=== PATIENT | male | born 1965 | race Caucasian/White ===

== ENCOUNTER 2019-09-13 08:33 | Observation (INO) | payer OTHER, SELFPAY ==
[2019-09-13] VITALS (8 sets, daily range): BP systolic 124–145; BP diastolic 77–100; PULSE 69–86; RESP 10–18; TEMP 37.1–37.4; O2SAT 96–100; BMI 31.7
--- NOTE | 2019-09-13 | ECHO_ITS ---
Patient Info Name: Navdeep Coy Age: 54 years : 1965 Gender: Male Ht: 69 in Wt: 220 lbs BSA: 2.24 m2 HR: 75 bpm BP: 132 / 77 mmHg Technical Quality: Good Exam Date: 09/13/2019 3:26 PM Exam Location: [facility] Pulmonary Exam Room: [facility] Patient Status: Outpatient Admit Date: 09/13/2019 Staff Ordering Physician: Sharon Yoo PA-C Application Support Developer: Marlyn Morales RDCS Attending Provider: Alvarez Reid MD Referring Physician: Naila THURMAN; Exam Type: CA echo doppler w bubble study Study Info Indications - cryptogenic cva Complete two-dimensional, color flow and Doppler transthoracic echocardiogram is performed with agitated saline. Contrast/Agitated Saline Contrast/Ag. Saline: Agitated Saline Amount: 20.00 ml Administered By: Andrés Weiss RN Existing IV Access: Yes IV Access Condition: patent with no signs of infiltration Summary 1. Left ventricular chamber dimension is normal. 2. Ventricular septum is sigmoid shaped. 3. Left ventricular systolic function is normal, estimated at 60-65%. 4. There is mildly increased left ventricular wall thickness. 5. The left ventricular diastolic function is grade II diastolic dysfunction. 6. E/e' 11 is mildly elevated. 7. No pulmonary hypertension, estimated pulmonary arterial systolic pressure is 18 mmHg. Left Ventricle E/e' 11 is mildly elevated. Ventricular septum is sigmoid shaped. Left ventricular chamber dimension is normal. Left ventricular systolic function is normal, estimated at 60-65%. There is mildly increased left ventricular wall thickness. The left ventricular diastolic function is grade II diastolic dysfunction. Right Ventricle Right ventricular chamber dimension is normal. Left Atria Left atrial chamber dimension is normal. Right Atria Right atrial chamber dimension is normal. Atrial Septum Agitated saline injection opacifed the right sided chambers without any shunt to left sided chambers with and without valsalva maneuver. Intact interatrial septum visualized by color flow and agitated saline imaging. Aortic Valve The aortic valve is trileaflet. There is no aortic valve stenosis. There is no aortic valve regurgitation. Pulmonic Valve There is no pulmonic regurgitation. Mitral Valve There is no mitral valve stenosis. There is no mitral valve regurgitation. Tricuspid Valve There is no tricuspid valve regurgitation. No pulmonary hypertension, estimated pulmonary arterial systolic pressure is 18 mmHg. Pericardium/Pleural There is no pericardial effusion. Inferior Vena Cava Normal inferior vena cava with >50% collapse upon inspiration consistent with normal right atrial pressure, 5 mmHg. Aorta The aortic root size at the sinus of Valsalva is normal. Left Ventricular Outflow Tract Name Value Normal LVOT 2D LVOT Diameter 2.1 cm LVOT Doppler LVOT Peak Gradient 4 mmHg LVOT Mean Gradient 2 mmHg LVOT VTI 21 cm LVOT VTI/AV V
--- NOTE | ~2019-09-13 | MR_ITS ---
EXAMINATION: MR brain/brain stem wo con DATE: 09/13/2019 16:51 INDICATION: Left facial numbness. TECHNIQUE: Magnetic resonance imaging (MRI) of the brain and brainstem was performed without intraven ous contrast. Sequences included sagittal and axial T1-weighted FSE, axial diffusion-weighted FS EPI, axial T2*-weighted GRE, axial T2-weighted FLAIR Propeller, and axial T2-weighted Propeller. Apparent diffusion coefficient (ADC) maps were created. COMPARISON: Brain MRI 10/30/2018, head CT 09/13/2019 FINDINGS: There are scattered areas of nonspecific increased T2-weighted signal intensity in the cere bral white matter, which is within normal limits for the patient's age. There is an old lacunar infar ct in right thalamus. There is no intracranial hemorrhage, acute infarction, or abnormal intracranial mass lesion. The ventricles are normal in size. The paranasal sinuses are clear. The orbits are norm al. The mastoid air cells are normal. IMPRESSION: 1. Old lacunar infarct in right thalamus. Reviewed, dictated and finalized at location B. HER EDGER
--- NOTE | ~2019-09-13 | CT_ITS ---
EXAMINATION: CT brain wo con INDICATION: Left facial numbness COMPARISON: 10/31/2018 TECHNIQUE: Standard unenhanced head CT. The dose-length product (DLP) was 605.33 mGy-cm. The mA was a djusted according to patient size. Iterative reconstruction technique was employed. FINDINGS: There is no intracranial hemorrhage, acute infarction, or abnormal mass lesion. There is lo w attenuation in the right thalamus at the site of prior infarction. The ventricles are normal. There is no abnormal mass effect or midline shift. The iyer-white matter differentiation is normal. The ba shashi cisterns are patent. The orbits are normal. The paranasal sinuses, mastoids and calvarium are nor mal. IMPRESSION: 1. No acute intracranial abnormality. Reviewed, dictated and finalized at location A. IC TRANSLATOR
--- NOTE | ~2019-09-13 | XR_ITS ---
EXAMINATION: XR chest 2V DATE: 09/13/2019 09:21 INDICATION: Left facial numbness. TECHNIQUE: PA and lateral views of the chest were obtained. COMPARISON: Chest radiograph dated 10/29/2018 FINDINGS: Multiple scattered small calcified nodules and calcified right hilar lymph nodes consistent with old granulomatous disease. No new airspace opacities, pulmonary edema, pleural effusion or pneumothorax. The cardiomediastinal silhouette is normal. Mild thoracic dextrocurvature with mild spondylosis. IMPRESSION: 1. No acute cardiopulmonary disease. Reviewed, dictated and finalized at location A. PHONE SALES REPRESENTATIVE
--- NOTE | 2019-09-13 08:46 | ECG_ITS ---
Measurements Intervals [place] Rate: 75 P: 25 TX: 182 QRS: 125 QRSD: 82 T: 20 QT: 351 QTc: 394 Interpretive Statements SINUS RHYTHM RIGHT AXIS DEVIATION BASELINE ARTIFACT- I, II, III, AVR, AVL, V1 BORDERLINE ECG Electronically Signed On 09-13-2019 9:01:26 MIX HOUSE TENDER by Reilly Ontiveros D.O.
[2019-09-13 08:49] LABS: Glucose Point of Care 124 (65-105)
--- NOTE | 2019-09-13 08:56 | ED.NEUROSD ---
HPI - Neuro Symptoms/Deficit General Chief Complaint: Neuro Symptoms/Deficit Stated Complaint: left facial numbness Time Seen by Provider: 09/13/19 08:46 Source: patient Mode of arrival: ambulatory Limitations: no limitations History of Present Illness HPI Narrative: Pt is a 54 y/o male who presents to the ED with c/o lt facial paresthesia that started at 0700AM this morning. Pt states that he woke up at 0620AM and was feeling fine, but he sneezed 3-4 times forcefully and after that he experienced the numbness/tingling. Pt states that he does not have the sensation of pins and needles but he has a dull feeling to his lt cheek. He notes that he started having tingling to his lt parietal region and it radiated down to his lt cheek. He denies weakness or numbness/tingling to any extremities, slurred speech, or visual changes. Pt notes that he is not leaning towards the left. He has a H/o of a stroke in October 2018 that left him with residual lt shoulder and lt back numbness. Pt denies rhinorrhea, sore throat, or a cough. He states that he has a chronic SHAFFER since his last stroke and he follows up with his PCP, Dr. Cesar about it. Pt states that he saw Dr. Boston, as his neurologist, while he was in the hospital for his last stroke. Pt takes ASA 324mg daily as his anticoagulation therapy. Onset (ago): minute(s) (105) Time: 07:00 Location: left face History of same: Yes Severity: similar to previous episodes Quality: numb and tingling Context: sudden onset On Anticoagulants: Yes (324mg ASA) Associated symptoms: denies other symptoms Related Data Home Medications Medication Instructions Recorded Confirmed aspirin 09/13/19 Allergies Allergy/AdvReac Type Severity Reaction Status Date / Time iodine Allergy Unknown Swelling Verified 09/13/19 08:45 ioversol Allergy Unknown Unknown Verified 09/13/19 08:45 simvastatin Allergy Unknown Unknown Verified 09/13/19 08:45 Review of Systems Review of Systems: All systems reviewed & are unremarkable except as noted in HPI and below Eyes: Eyes: Denies change in vision ENT: Denies nasal discharge and Denies sore throat Respiratory: Respiratory: Denies cough Neurologic: Reports headache(s) (chronic), Denies numbness (to any extremities), Denies tingling (to any extremities), Reports paresthesias (lt face), Denies disequilibrium, Denies weakness (to extremities) and Denies other (slurred speech) PMFSH Past Medical History Medical History Hypothyroid Right thalamic infarction Surgical History Surgical History (Updated 09/13/19 @ 09:35 by Diallo Jerry) H/O inguinal hernia repair History of testicular surgery Social History Social History Smoking status: Never smoker Alcohol intake: current Gender identity (if verbalized by the patient): Male Exam Narrative: Exam Narrative: GENERAL: Well-appearing, well-nourished, and in no acute distress. HEAD: Normocephalic, atraumatic. EYES: PERRL and EOMI. ENT: Mucous membranes moist. CHEST: Clear to auscultation. No respiratory distress. HEART: Regular rate and rhythm. Normal peripheral pulses. ABDOMEN: Soft, nontender, nondistended. EXTREMITIES: Normal range of motion. No edema. NEURO: No upper or lower extremity drift. Symmetric smile, clear speech, no expressive aphasia. Sharp touch deficit over V2 of the left face with otherwise normal sensation. Alert and oriented x3. Course Consultations Consultation #1: Discussed case with Dr. Boston, the neurologist. Recommends admission, obtain MRI, start on Plavix, and he will follow up as outpatient. Date: 09/13/19 Time: 11:19 Consultation #2: Discussed case with Dr. Reid, the hospitalist. Accepted admission. Date: 09/13/19 Time: 11:33 Vital Signs Vital signs: Vital Signs Pulse Rate 78 09/13/19 08:38 Respiratory Rate 10 L 09/13/19 08:38 Blood Pressure 128/87 09/13/19 08
[2019-09-13 09:20] LABS: Basophils Percent Auto 0.6 % (0.2-1.2); Eosinophils Absolute Auto 0.1 K/mm3 (0-0.3); Eosinophils Percent Auto 1.5 % (0-4.4); Immature Granulocyte Absolute 0.03 K/mm3 (0.00-0.031); Immature Granulocyte Percent A 0.5 % (0-0.5); Lymphocytes Percent Auto 21.1 % (18.3-44.2); Mean Corpuscular HGB Conc 34.1 g/dl (32-36); Mean Corpuscular Hemoglobin 31.5 pg (26-34); Mean Corpuscular Volume 92.4 fl (80-100); Mean Platelet Volume 9.5 fl (7.4-10.4); Monocytes Absolute Auto 0.5 K/mm3 (0.1-0.6); Monocytes Percent Auto 7.7 % (2.6-8.5); Neutrophils Absolute Auto 4.6 K/mm3 (1.3-6.7); Neutrophils Percent Auto 68.6 % (45.5-73.1); Platelet Count Result 247 k/mm3 (150-375); Red Blood Count 4.76 M/mm3 (4.6-6.20); Red Cell Distribution Width 12.5 % (11.5-14.5); White Blood Count 6.6 K/mm3 (4.5-10.0)
[2019-09-13 09:30] LABS: Prothrombin Time 13.3 Seconds (11.1-14.7)
[2019-09-13 09:31] LABS: Partial Thromboplastin Time 32.2 SECONDS (22.3-36.8)
[2019-09-13 09:34] LABS: Blood Urea Nitrogen 17 mg/dL (9-20); Calcium 9.5 mg/dL (8.4-10.2); Carbon Dioxide 25 mmol/L (22-30); Chloride 103 mmol/L (98-107); Estimated CRCL calculation 110 ml/min; Estimated Glomerular Filt Rate > 60; Glucose 114 mg/dL (75-110); Potassium 4.1 mmol/L (3.4-5.0); Sodium 139 mmol/L (137-145)
[2019-09-13 09:44] LABS: Troponin I < 0.012 ng/mL (0.000-0.034)
[2019-09-13] MEDS: CLOPIDOGREL BISULFATE 75 MG TABLET PO (12:27)
--- NOTE | 2019-09-13 13:35 | PC.NURSE ---
This patient, Navdeep Coy, was admitted to Medical Room 253-01. Patient/family oriented to hospital policies and general routines including ID bracelet, bed and alarms, visiting hours, pain management, procedures, bathroom and other care routines, personal items, smoking policy, room service/diet, and visiting hours. Valuables list has been completed. Information on how to activate the Rapid Response Team has been discussed. Patient/Family are encouraged to report perceived risks to care and to ask questions if they do not understand what they are told or what they should do.
--- NOTE | 2019-09-13 14:00 | PM.IMHP ---
H&P: HPI History of Present Illness Chief complaint: Left facial numbness. Narrative: Navdeep Coy is a 54 year old male with hypertension and a history of right thalamic infarction October 30, 2018 who presented to the emergency department earlier this morning from home for evaluation of left facial numbness. He awoke in his usual state of health at 06:20. Not long thereafter, he developed paresthesias in the left parietal region followed shortly by abnormal sensations, almost numbness ?like when your arm falls asleep? in the left cheek. He also reports sneezing quite forcefully 3 to 4 times around the start of these other symptoms, but does not recall if that was before after the paresthesias. In any event, the sensation changes worried him as he had a similar presentation before his previous stroke. He also complains of a dull headache that starts at the base of the right occiput, radiating to the right anglican, which is not unusual since his previous stroke. 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 The tingling in the parietal region has resolved, but he continues to have sensation changes in the left cheek. He denies acute auditory and visual changes. No focal weakness. He has not had palpitations and has no history of cardiac dysrhythmia. He was started on a statin after his previous stroke, but stopped taking that due to the development of a rash and fatigue, with his primary care provider's blessing. He does take aspirin, 324 milligrams daily and states compliance with that. Review of Systems Review of Systems: Narrative: Twelve systems were reviewed with pertinent positives and negatives as per HPI. No recent cold or flu symptoms. Denies fever, chills, and sweats. Appetite has been good. No weight changes. Denies nausea, vomiting, and diarrhea. No lower extremity edema or history of venous thromboembolism. He denies ever having signs or symptoms of alcohol withdrawal. Except as documented, all other systems were reviewed and are negative. [facility] Past Medical History Medical History (Updated 09/13/19 @ 20:12 by Sharon Yoo PA-C) Daily consumption of alcohol Hypertension Hypothyroidism Right thalamic infarction In october 30, 2018, with residual numbness on the left side at the back and left shoulder. Echocardiogram showed normal systolic and diastolic function with an EF of 55 to 60%. Carotid ultrasound showed left and 50% stenosis in bilateral internal carotid arteries. Head/neck CTA was unremarkable except for the infarction. Lipids were normal. Surgical History Surgical History (Updated 09/13/19 @ 14:04 by Sharon Yoo PA-C) History of testicular surgery Testicular torsion as a teenager. Status post inguinal hernia repair With mesh in 1998. Family History Family History Mother Family history of cardiac disorder Patient's mother is in good health Father Acute myocardial infarction Patient's father is Family history of pancreatic disease Cerebrovascular accident Diabetes mellitus Social History Social History (Updated 09/13/19 @ 20:09 by Sharon Yoo PA-C) Social History: The patient lives in [place] with his . He designates his , Cassidy, as his surrogate decision maker and he wishes to be a full code. 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 He smoked a few cigarettes a day for several years in his late 20s. He admits to drinking about 5 beers a day and 2 to 3 shots of whiskey, most nights of the week. Years smoked: 15 Alcohol intake: current Drinks per week: 18 Substance use: former Substance use type: marijuana Gender identity (if verbalized by the patient): Male Spiritual care concerns: No Agree to blood products:
[2019-09-13 16:44] LABS: Folic Acid 14.5 ng/mL (2.76->20)
[2019-09-14] VITALS (7 sets, daily range): BP systolic 131–143; BP diastolic 73–88; PULSE 69–93; RESP 17–18; TEMP 36.6–36.9; O2SAT 98
[2019-09-14] MEDS: LEVOTHYROXINE SODIUM 50 MCG TABLET PO (05:26)
[2019-09-14 05:55] LABS: Alanine Aminotransferase 22 U/L (4-50); Alkaline Phosphatase 57 U/L (38-126); Aspartate Amino Transferase 24 U/L (17-59); Bilirubin,Total 0.2 mg/dL (0.2-1.3); Blood Urea Nitrogen 17 mg/dL (9-20); Carbon Dioxide 24 mmol/L (22-30); Chloride 105 mmol/L (98-107); Cholesterol 153 mg/dL (0-200); Estimated CRCL calculation 99 ml/min; Estimated Glomerular Filt Rate > 60; Glucose 97 mg/dL (75-110); HDL Direct 38 mg/dL; Potassium 3.9 mmol/L (3.4-5.0); Sodium 138 mmol/L (137-145); Triglycerides 108 mg/dL (<150)
[2019-09-14 06:05] LABS: LDL Cholesterol Direct 102 mg/dL
[2019-09-14] MEDS: ASPIRIN 81 MG ENTERIC TABLET PO (08:38)
[2019-09-14] MEDS: CLOPIDOGREL BISULFATE 75 MG TABLET PO (08:38)
[2019-09-14] MEDS: AMLODIPINE BESYLATE 5 MG TABLET PO (08:38)
[2019-09-14] MEDS: FOLIC ACID 1 MG TABLET PO (08:38)
[2019-09-14] MEDS: CYANOCOBALAMIN INJ 1,000 MCG/ML VIAL 1000 MCG IM (08:39)
[2019-09-14] MEDS: THIAMINE HCL 100 MG TABLET PO (11:20)
--- NOTE | 2019-09-14 17:05 | PM.DS ---
DS: Diagnosis Admitting Diagnosis Admitting Diagnosis: Essential (primary) hypertension Discharge Diagnosis (1) Hypertension: Code(s): I10 - Essential (primary) hypertension Status: Acute (2) Left facial numbness: Code(s): R20.0 - Anesthesia of skin Status: Acute (3) Hypothyroidism: Code(s): E03.9 - Hypothyroidism, unspecified Status: Acute (4) Daily consumption of alcohol: Code(s): Z78.9 - Other specified health status Status: Acute DS: Summary Hospital Course Reason for hospitalization: 54yo male here for left facial numbness. Please see H&P for details. Hospital Course: Patient was admitted to [address] [place] [address] showed no acute intracranial findings. Chest x-ray was clear. EKG showed no acute changes. Labwork was unrevealing. Patient was started on Plavix. Aspirin dose was decreased to 81 mg. LDL 102. HDL 38. B12 272. TSH normal. Brain MRI showed old lacunar infarct in right thalamus no acute findings. Showed EF of 60-65% with grade 2 diastolic dysfunction. Patient cannot take statin therapy because it causes myalgias and a rash. Patient had a stroke less than a year ago and these imaging results were reviewed. Patient states he still has some numbness to the left side of the face today but this is improved. He has been having persistent headaches since the stroke a year ago. He has not followed up with the neurologist after his 1st stroke. He takes ibuprofen twice a week for the headaches. He has also been having dizzy spells that are consistent with vertigo. He does drink excessive amounts of alcohol and he was educated about the benefits of abstaining from alcohol use entirely. He was advised to drink more free fluid. He is also advised to start exercise program once cleared by his primary care doctor. Discussed with neurologist by phone. Okay for discharge. Patient to follow-up with neurology in the clinic. Patient is eager for discharge. Status at Discharge Functional status at discharge: independent ambulation Overall status at discharge: patient is back to baseline Time Spent with Patient Time attestation: Total time spent providing and/or coordinating discharge services:40 minutes Time spent: Greater than 30 minutes Exam Narrative: Exam Narrative: General: NARD HEENT: NC/AT, PEERL, no facial asymmetry, palate rises symmetrically, tongue midline Neck: Supple. Respiratory: Lungs are clear to auscultation bilaterally. CV: Regular rate and rhythm with S1-S2. No murmur, rub, or gallop. Tele showing no dysrhythmias GI: Abdomen is soft, NT/ND, +BS Ext: No pedal edema. Neuro: Alert and oriented x4. Cranial nerves 2-12 intact. Speech is clear. Normal strength and tone Psych: normal mood and affect. Skin: Warm and dry. DS: Data Data Completed and Pending Labs on day of discharge: Labs from last 24 hours 09/14/19 05:04 Sodium 138 Potassium 3.9 Chloride 105 Carbon Dioxide 24 BUN 17 Creatinine 0.90 Estim Creat Clear Calc 99 Estimated GFR > 60 Glucose 97 Calcium 9.0 Total Bilirubin 0.2 AST 24 ALT 22 Alkaline Phosphatase 57 Total Protein 7.0 Albumin 4.0 Triglycerides 108 Cholesterol 153 LDL Cholesterol Direct 102 HDL Direct 38 Discharge Plan Discharge Attending physician on discharge: Jack Thapa Consulting providers: Marvin Boston Discharging Clinician: Jack Thapa Anticipated Discharge Date/Time: 09/14/19 17:16 Patient Disposition: Home, Self-Care Activity: as tolerated Diet: heart healthy Discharge Instructions: Return to the ED if having worsening numbness or any weakness in an arm or leg or for any other concern symptoms. Follow up with Dr Boston in the clinic. Drink plenty of free fluid. Start an exercise program once you are cleared to do so by your doctor. Take the Plavix for one month with the Aspirin 81mg. After one month, resume the Aspirin 324mg daily
--- NOTE | 2019-09-14 17:54 | WPDNEURCNPN ---
Assessment and Plan Assessment and plan (1) Daily consumption of alcohol: Code(s): Z78.9 - Other specified health status Status: Acute (2) Hypothyroidism: Code(s): E03.9 - Hypothyroidism, unspecified Status: Acute (3) Hypertension: Code(s): I10 - Essential (primary) hypertension Status: Acute (4) Left facial numbness: Code(s): R20.0 - Anesthesia of skin Status: Acute (5) Dizziness: Code(s): R42 - Dizziness and giddiness Status: Acute Additional Plan patient's workup for any new evidence of stroke has been negative is being discharged as per the hospitalist notes were reviewed and concurred he may have a follow-up with us on as needed basis he needs to cut down the drinking habits which has been addressed by the hospitalist in detail Consult date: 09/14/19 Time Seen: 17:00 HPI: Navdeep Coy is a 54 year old male who was admitted because of the left-sided facial numbness and his workup has been negative for any new evidence of stroke he was taking shower independently when this examiner os Dorys few questions he denies any headache nausea vomiting chest pain shortness of breath he does accept consuming alcohol quite a bit Review of Systems Review of Systems: All systems reviewed & are unremarkable except as noted in HPI and below PMFSH Past Medical History Medical History Daily consumption of alcohol Hypertension Hypothyroidism Right thalamic infarction In october 30, 2018, with residual numbness on the left side at the back and left shoulder. Echocardiogram showed normal systolic and diastolic function with an EF of 55 to 60%. Carotid ultrasound showed left and 50% stenosis in bilateral internal carotid arteries. Head/neck CTA was unremarkable except for the infarction. Lipids were normal. Surgical History Surgical History History of testicular surgery Testicular torsion as a teenager. Status post inguinal hernia repair With mesh in 1998. Family History Family History Mother Family history of cardiac disorder Patient's mother is in good health Father Acute myocardial infarction Patient's father is Family history of pancreatic disease Cerebrovascular accident Diabetes mellitus Social History Social History Social History: The patient lives in [place] with his . He designates his , Cassidy, as his surrogate decision maker and he wishes to be a full code. 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 He smoked a few cigarettes a day for several years in his late 20s. He admits to drinking about 5 beers a day and 2 to 3 shots of whiskey, most nights of the week. Years smoked: 15 Alcohol intake: current Drinks per week: 18 Substance use: former Substance use type: marijuana Gender identity (if verbalized by the patient): Male Spiritual care concerns: No Agree to blood products: Yes Meds Home Medications and Allergies Home Medications Medication Instructions Recorded Confirmed Type levothyroxine 50 mcg tablet 50 mcg PO DAILY #30 tablet 08/22/19 09/13/19 Rx amlodipine 5 mg tablet 5 mg PO DAILY #30 tablet 08/27/19 09/13/19 Rx aspirin 81 mg PO QAM #30 tablet 09/14/19 Rx clopidogrel 75 mg PO QAM #30 tablet 09/14/19 Rx cyanocobalamin (vitamin B-12) 1,000 mcg PO QAM #30 tablet 09/14/19 Rx [Vitamin B-12] thiamine HCl (vitamin B1) [Vitamin 100 mg PO QAM #30 tablet 09/14/19 Rx B-1] Allergies Allergy/AdvReac Type Severity Reaction Status Date / Time gadobenic acid Allergy Swelling Verified 09/13/19 15:42 [From contrast - MRI] guaifenesin [From Robitussin] Allergy Gastrointestinal Verified 09/13/19 16:17 Upset Vital Signs Vital Signs - 24 hr 09/13/19 20:00 09/13/19 22:00 09/14/19
== END 2019-09-14 18:35 | disposition home or self-care (01) ==
LOC: ANHED 11:40 → ANH2MED 12:07
PROVIDERS: Physician Assistant; Admitting Provider Family Medicine; Emergency Provider Emergency Medicine; PCP Emergency Medicine; Visit Provider Internal Medicine
DX: R20.0 Anesthesia of skin (principal); R42 Dizziness and giddiness; I10 Essential (primary) hypertension; E03.9 Hypothyroidism, unspecified; Z78.9 Other specified health status; Z86.73 Personal history of transient ischemic attack (TIA), and cerebral infarction without residual deficits; Z79.82 Long term (current) use of aspirin; Z79.899 Other long term (current) drug therapy
CPT/HCPCS: 36415; 70450; 70551; 71046; 80048; 80053; 80061; 82607; 82746; 82948; 84443; 84484; 85025; 85610; 85730; 93005; 93306; 96372; 96375; 99285; A9270; G0378; J3420

== ENCOUNTER 2020-02-03 10:21 | Outpatient (CLI) | payer OTHER, SELFPAY ==
[2020-02-03 11:19] LABS: Alanine Aminotransferase 37 U/L (4-50); Albumin Level 4.5 g/dL (3.5-5.1); Alkaline Phosphatase 64 U/L (38-126); Aspartate Amino Transferase 37 U/L (17-59); Bilirubin,Total 0.9 mg/dL (0.2-1.3); Blood Urea Nitrogen 17 mg/dL (9-20); Calcium 9.4 mg/dL (8.4-10.2); Carbon Dioxide 28 mmol/L (22-30); Chloride 104 mmol/L (98-107); Cholesterol 140 mg/dL (0-200); Estimated Glomerular Filt Rate > 60; Glucose 117 mg/dL (75-110); HDL Direct 53 mg/dL; Potassium 3.7 mmol/L (3.4-5.0); Sodium 137 mmol/L (137-145); Triglycerides 65 mg/dL (<150)
[2020-02-03 11:30] LABS: LDL Cholesterol Direct 68 mg/dL
== END 2020-02-03 10:22 | disposition home or self-care (01) ==
PROVIDERS: PCP Emergency Medicine; Visit Provider Emergency Medicine
DX: E78.5 Hyperlipidemia, unspecified (principal); E03.9 Hypothyroidism, unspecified
CPT/HCPCS: 36415; 80053; 80061; 84443

== ENCOUNTER 2020-05-07 08:34 | Outpatient (CLI) | payer OTHER, SELFPAY ==
[2020-05-07 09:13] LABS: Alanine Aminotransferase 30 U/L (4-50); Albumin Level 4.4 g/dL (3.5-5.1); Alkaline Phosphatase 69 U/L (38-126); Anion Gap 4 mmol/L (8-16); Aspartate Amino Transferase 32 U/L (17-59); Bilirubin,Total 0.5 mg/dL (0.2-1.3); Blood Urea Nitrogen 16 mg/dL (9-20); Calcium 9.1 mg/dL (8.4-10.2); Carbon Dioxide 25 mmol/L (22-30); Chloride 106 mmol/L (98-107); Cholesterol 138 mg/dL (0-200); Estimated Glomerular Filt Rate > 60; Glucose 123 mg/dL (75-110); HDL Direct 53 mg/dL; Sodium 135 mmol/L (137-145); Triglycerides 78 mg/dL (<150)
[2020-05-07 09:24] LABS: LDL Cholesterol Direct 61 mg/dL
== END 2020-05-07 08:35 | disposition home or self-care (01) ==
LOC: ANHLAB 08:35
PROVIDERS: PCP Emergency Medicine; Visit Provider Emergency Medicine
DX: E03.9 Hypothyroidism, unspecified (principal); E78.5 Hyperlipidemia, unspecified
CPT/HCPCS: 36415; 80053; 80061; 84443

== ENCOUNTER 2020-06-09 11:24 | Outpatient (CLI) | payer OTHER, SELFPAY | END 2020-06-09 11:25 | disposition home or self-care (01) | LOC: ANHLAB 11:25 | PROVIDERS: PCP Emergency Medicine; Visit Provider Emergency Medicine | DX: E03.9 Hypothyroidism, unspecified (principal) | CPT/HCPCS: 36415; 84443 ==

== ENCOUNTER 2020-09-15 10:38 | Outpatient (CLI) | payer OTHER, SELFPAY ==
[2020-09-15 11:14] LABS: Alanine Aminotransferase 26 U/L (4-50); Albumin Level 4.4 g/dL (3.5-5.1); Alkaline Phosphatase 58 U/L (38-126); Anion Gap 7 mmol/L (8-16); Aspartate Amino Transferase 29 U/L (17-59); Bilirubin,Total 0.8 mg/dL (0.2-1.3); Blood Urea Nitrogen 15 mg/dL (9-20); Calcium 9.2 mg/dL (8.4-10.2); Carbon Dioxide 28 mmol/L (22-30); Chloride 103 mmol/L (98-107); Cholesterol 141 mg/dL (0-200); Estimated Glomerular Filt Rate > 60; Glucose 107 mg/dL (75-110); HDL Direct 53 mg/dL; Potassium 4.2 mmol/L (3.4-5.0); Sodium 138 mmol/L (137-145); Triglycerides 109 mg/dL (<150)
[2020-09-15 11:26] LABS: LDL Cholesterol Direct 63 mg/dL
== END 2020-09-15 10:39 | disposition home or self-care (01) ==
PROVIDERS: PCP Emergency Medicine; Visit Provider Emergency Medicine
DX: E78.5 Hyperlipidemia, unspecified (principal); E03.9 Hypothyroidism, unspecified
CPT/HCPCS: 36415; 80053; 80061; 84443

== ENCOUNTER 2021-06-07 10:47 | Outpatient (CLI) | payer OTHER, SELFPAY ==
[2021-06-07 11:51] LABS: Thyroid Stimulating Hormone 0.877 uIU/mL (0.465-4.680)
== END 2021-06-07 10:48 | disposition home or self-care (01) ==
PROVIDERS: PCP Emergency Medicine; Visit Provider Emergency Medicine
DX: E03.9 Hypothyroidism, unspecified (principal)
CPT/HCPCS: 36415; 84443

== ENCOUNTER 2021-08-23 09:34 | Outpatient (CLI) | payer OTHER, SELFPAY ==
[2021-08-23 10:41] LABS: Alanine Aminotransferase 36 U/L (4-50); Albumin Level 4.5 g/dL (3.5-5.1); Alkaline Phosphatase 62 U/L (38-126); Anion Gap 9 mmol/L (8-16); Aspartate Amino Transferase 31 U/L (17-59); Bilirubin,Total 0.9 mg/dL (0.2-1.3); Blood Urea Nitrogen 15 mg/dL (9-20); Calcium 9.5 mg/dL (8.4-10.2); Carbon Dioxide 27 mmol/L (22-30); Chloride 102 mmol/L (98-107); Cholesterol 154 mg/dL (0-200); Estimated Glomerular Filt Rate > 60; Glucose 109 mg/dL (65-110); HDL Direct 54 mg/dL; Potassium 4.1 mmol/L (3.4-5.0); Sodium 138 mmol/L (137-145); Triglycerides 142 mg/dL (<150)
[2021-08-23 10:52] LABS: LDL Cholesterol Direct 72 mg/dL
[2021-08-23 11:11] LABS: Prostate Specific Antigen 0.9 ng/mL (< OR = 4.0); Thyroid Stimulating Hormone 0.853 uIU/mL (0.465-4.680)
== END 2021-08-23 09:35 | disposition home or self-care (01) ==
PROVIDERS: PCP Emergency Medicine; Visit Provider Emergency Medicine
DX: E78.5 Hyperlipidemia, unspecified (principal); E03.9 Hypothyroidism, unspecified; Z12.5 Encounter for screening for malignant neoplasm of prostate
CPT/HCPCS: 36415; 80053; 80061; 84153; 84443; G0103

== ENCOUNTER 2022-07-07 16:07 | Emergency (ER) | payer OTHER, SELFPAY ==
[2022-07-07 16:17] VITALS: BP 132/84; PULSE 70; RESP 16; TEMP 37.2; O2SAT 100
--- NOTE | 2022-07-07 17:01 | ED.EAR ---
HPI - Ear Problem General Chief complaint: Ear Stated complaint: ear/nose/throat Time Seen by Provider: 07/07/22 17:00 Source: patient, RN notes reviewed and old records reviewed Mode of arrival: ambulatory Limitations: no limitations History of Present Illness HPI Narrative: 56 year old male who [facility] with complaints of right ear swelling decreased hearing and discomfort for the past week and symptoms are getting worse. Right ear canal is swollen and red with some redness to tympanic membrane of right ear with small amount of yellow drainage some tragal tenderness noted. Patient denies any cough, nasal congestion or drainage or any acute fevers.Patient reports that he has been taking Ibuprofen for his symptoms.Patient has had COVID immunizations. MD Complaint: ear pain, decreased hearing and other (swollen right ear) Location: right ear Duration: constant Discharge from ear: Reports no Associated symptoms ear: decreased hearing and ear swelling Treatment prior to arrival: other (ibuprofen) Related Data Home Medications Medication Instructions Recorded Confirmed cholecalciferol (vitamin D3) 25 1,000 unit PO DAILY 06/12/20 07/07/22 mcg (1,000 unit) capsule Allergies Allergy/AdvReac Type Severity Reaction Status Date / Time gadobenic acid Allergy Swelling Verified 07/07/22 16:24 [From contrast - MRI] guaifenesin [From Robitussin] Allergy Gastrointestinal Verified 07/07/22 16:24 Upset Review of Systems Review of Systems: CONSTITUTIONAL: Denies malaise, chills, sweats, or fever. EYES: Denies visual changes, redness, or discharge. ENT: Reports no rhinorrhea, congestion, no sinus pain,right otalgia, no sore throat. CARDIOVASCULAR: Denies chest pain, palpitations, or edema. RESPIRATORY: Denies cough.? Denies dyspnea. GASTROINTESTINAL: Denies abdominal pain, nausea, vomiting, diarrhea SKIN: Denies rash or itching. MUSCULOSKELETAL: Denies myalgia. NEUROLOGIC: Denies headache. All systems reviewed & are unremarkable except as noted in HPI and below PMFSH Past Medical History Medical History Acute eczema CVA, old, hemiparesis Daily consumption of alcohol Hypertension Hypothyroidism Right thalamic infarction In october 30, 2018, with residual numbness on the left side at the back and left shoulder. Echocardiogram showed normal systolic and diastolic function with an EF of 55 to 60%. Carotid ultrasound showed left and 50% stenosis in bilateral internal carotid arteries. Head/neck CTA was unremarkable except for the infarction. Lipids were normal. Surgical History Surgical History History of testicular surgery Testicular torsion as a teenager. Status post inguinal hernia repair With mesh in 1998. Family History Family History Mother Family history of cardiac disorder Patient's mother is in good health Father Acute myocardial infarction Patient's father is Family history of pancreatic disease Cerebrovascular accident Diabetes mellitus Social History Social History Social History: The patient lives in [place] with his . He designates his , Cassidy, as his surrogate decision maker and he wishes to be a full code. 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 He smoked a few cigarettes a day for several years in his late 20s. He admits to drinking about 5 beers a day and 2 to 3 shots of whiskey, most nights of the week. Years smoked: 15 Alcohol intake: current Drinks per week: 18 Substance use: former Substance use type: marijuana Gender identity (if verbalized by the patient): Male Spiritual care concerns: No Agree to blood products: Yes Comments At time of signature, agree with nursing past medical, surgical, social a
== END 2022-07-07 17:31 | disposition home or self-care (01) ==
PROVIDERS: Emergency Provider Registered Nurse; PCP Emergency Medicine
DX: H66.001 Acute suppurative otitis media without spontaneous rupture of ear drum, right ear (principal); H60.311 Diffuse otitis externa, right ear; I10 Essential (primary) hypertension; E03.9 Hypothyroidism, unspecified; I69.354 Hemiplegia and hemiparesis following cerebral infarction affecting left non-dominant side
CPT/HCPCS: 99213; G0463

== ENCOUNTER 2022-11-08 08:33 | Outpatient (CLI) | payer OTHER, SELFPAY ==
[2022-11-08 09:21] LABS: Alanine Aminotransferase 40 U/L (6-50); Albumin Level 4.9 g/dL (3.5-5.1); Alkaline Phosphatase 70 U/L (38-126); Anion Gap 6 mmol/L (8-16); Aspartate Amino Transferase 38 U/L (17-59); Bilirubin,Total 0.9 mg/dL (0.2-1.3); Blood Urea Nitrogen 15 mg/dL (9-20); Calcium 9.6 mg/dL (8.4-10.2); Carbon Dioxide 29 mmol/L (22-30); Chloride 105 mmol/L (98-107); Cholesterol 138 mg/dL (0-200); Estimated Glomerular Filt Rate > 60; Glucose 107 mg/dL (65-110); HDL Direct 56 mg/dL; Potassium 4.1 mmol/L (3.4-5.0); Sodium 140 mmol/L (137-145); Triglycerides 81 mg/dL (<150)
[2022-11-08 09:32] LABS: LDL Cholesterol Direct 57 mg/dL
[2022-11-08 10:15] LABS: Thyroid Stimulating Hormone Reflex 0.964 uIU/mL (0.465-4.68)
== END 2022-11-08 08:34 | disposition home or self-care (01) ==
LOC: ANHLAB 08:34
PROVIDERS: PCP Family Medicine; Visit Provider Family Medicine
DX: E03.9 Hypothyroidism, unspecified (principal); Z12.5 Encounter for screening for malignant neoplasm of prostate; I10 Essential (primary) hypertension; E78.5 Hyperlipidemia, unspecified
CPT/HCPCS: 36415; 80053; 80061; 84153; 84443; G0103

== ENCOUNTER 2023-01-30 12:35 | Emergency (ER) | payer OTHER, SELFPAY ==
--- NOTE | ~2023-01-30 | XR_ITS ---
EXAMINATION: XR wrist LT min 3V DATE: 01/30/2023 13:00 INDICATION: Left wrist pain TECHNIQUE: Posteroanterior, ulnar deviation, oblique, and lateral views of the left wrist were obtain ed. COMPARISON: None available FINDINGS: There is an acute, traumatic, closed, nondisplaced fracture of the dorsal aspect of the dis otoniel radius. No additional fracture is identified. Soft tissue swelling surrounds the fracture. IMPRESSION: 1. Nondisplaced fracture at the dorsal aspect of the distal radius. Reviewed, dictated and finalized at location A.
--- NOTE | 2023-01-30 12:44 | ED.GENADULT ---
HPI - General Adult General Chief complaint: Extremity Injury, Upper Stated complaint: lt wrist injury Time Seen by Provider: 01/30/23 13:07 Source: patient, RN notes reviewed and old records reviewed Mode of arrival: ambulatory Limitations: no limitations History of Present Illness HPI narrative: 57-year-old male presents to the [facility] with left wrist pain pain is mostly to the base of the thumb into dorsal aspect radius. Bruising and swelling noted. Patient states he tripped and fell with an outstretched arm on Monday. Treated it as a bruise last couple of days. Drove up today and thought he would just get it checked. Has been icing it Treatments prior to arrival: cold therapy Related Data Home Medications Medication Instructions Recorded Confirmed clopidogrel 75 mg tablet 75 mg PO DAILY 08/30/22 01/30/23 glucosamine sulfate 500 mg tablet 500 mg PO DAILY 08/30/22 01/30/23 (Glucosamine) thiamine HCl (vitamin B1) 100 mg 250 mg PO QAM 08/30/22 01/30/23 tablet (Vitamin B-1) cholecalciferol (vitamin D3) 25 25 mcg PO DAILY 09/15/22 01/30/23 mcg (1,000 unit) capsule Allergies Allergy/AdvReac Type Severity Reaction Status Date / Time gadobenic acid Allergy Swelling Verified 01/30/23 12:51 [From contrast - MRI] guaifenesin [From Robitussin] Allergy Gastrointestinal Verified 01/30/23 12:51 Upset Review of Systems Review of Systems: All systems reviewed & are unremarkable except as noted in HPI and below Constitutional: Constitutional: Reports no additional constitutional complaints Eyes: Eyes: Reports no additional eye complaints ENT: Reports system reviewed and no additional complaints, except as documented Cardiovascular: Cardiovascular: Reports no additional cardiovascular complaints, Denies chest pain and Denies dyspnea Respiratory: Respiratory: Reports no additional respiratory complaints, Denies chest congestion, Denies cough and Denies dyspnea Gastrointestinal: Gastrointestinal: Reports no additional gastrointestinal complaints, Denies abdominal pain, Denies nausea and Denies vomiting Musculoskeletal: Musculoskeletal: Reports as per HPI and Reports arthralgias ( left wrist pain) Integumentary/Breasts: Skin/Breast: Reports system reviewed and no additional complaints, except as docu Neurologic: Reports system reviewed and no additional complaints, except as documented Psychiatric: Psychiatric: Reports no additional psychiatric complaints Allergic/Immunologic: Allergic/Immunologic: Reports no additional allergic/immunologic complaints PMFSH Past Medical History Medical History Acute eczema CVA, old, hemiparesis Daily consumption of alcohol Hypertension Hypothyroidism Right thalamic infarction In october 30, 2018, with residual numbness on the left side at the back and left shoulder. Echocardiogram showed normal systolic and diastolic function with an EF of 55 to 60%. Carotid ultrasound showed left and 50% stenosis in bilateral internal carotid arteries. Head/neck CTA was unremarkable except for the infarction. Lipids were normal. Stroke Surgical History Surgical History History of testicular surgery Testicular torsion as a teenager. Status post inguinal hernia repair With mesh in 1998. Family History Family History Mother Family history of cardiac disorder Patient's mother is in good health Heart disease Father Acute myocardial infarction Patient's father is Family history of pancreatic disease Cerebrovascular accident Diabetes mellitus Heart disease Thyroid disorder Grandparent Cancer Heart disease Other Diabetes mellitus Social History Social History Social History: The patient lives in [place] with his . He
[2023-01-30 12:52] VITALS: BP 128/99; PULSE 71; RESP 16; TEMP 36.5; O2SAT 100
== END 2023-01-30 13:40 | disposition home or self-care (01) ==
PROVIDERS: Emergency Provider Nurse Practitioner; PCP Family Medicine
DX: S52.502A Unspecified fracture of the lower end of left radius, initial encounter for closed fracture (principal); W01.0XXA Fall on same level from slipping, tripping and stumbling without subsequent striking against object, initial encounter; I10 Essential (primary) hypertension; E03.9 Hypothyroidism, unspecified; R20.0 Anesthesia of skin; I69.398 Other sequelae of cerebral infarction; Z87.891 Personal history of nicotine dependence; F12.90 Cannabis use, unspecified, uncomplicated
CPT/HCPCS: 29125; 73110; 99214; A4565; G0463

== ENCOUNTER 2023-02-06 10:42 | Outpatient (CLI) | payer OTHER, SELFPAY ==
[2023-02-06 11:30] LABS: Alanine Aminotransferase 32 U/L (6-50); Albumin Level 4.7 g/dL (3.5-5.1); Alkaline Phosphatase 74 U/L (38-126); Anion Gap 7 mmol/L (8-16); Aspartate Amino Transferase 34 U/L (17-59); Blood Urea Nitrogen 12 mg/dL (9-20); Calcium 9.5 mg/dL (8.4-10.2); Carbon Dioxide 27 mmol/L (22-30); Chloride 106 mmol/L (98-107); Cholesterol 142 mg/dL (0-200); Estimated Glomerular Filt Rate > 60; Glucose 103 mg/dL (65-110); HDL Direct 64 mg/dL; Sodium 140 mmol/L (137-145); Triglycerides 92 mg/dL (<150)
[2023-02-06 11:43] LABS: LDL Cholesterol Direct 60 mg/dL
[2023-02-10 00:09] LABS: Vitamin D 1,25 (OH)2 Total 55 pg/mL (18-72); Vitamin D2 1,25 (OH)2 <8 pg/mL; Vitamin D3 1,25 (OH)2 55 pg/mL
== END 2023-02-06 10:43 | disposition home or self-care (01) ==
LOC: ANHLAB 10:43
PROVIDERS: PCP Family Medicine; Visit Provider Emergency Medicine
DX: E55.9 Vitamin D deficiency, unspecified (principal); E78.5 Hyperlipidemia, unspecified
CPT/HCPCS: 36415; 80053; 80061; 82652; 84443

== ENCOUNTER 2023-02-14 11:52 | Outpatient (CLI) | payer OTHER, SELFPAY ==
--- NOTE | ~2023-02-14 | XR_ITS ---
EXAMINATION: XR wrist LT min 3V DATE: 02/14/2023 12:10 INDICATION: Left wrist pain TECHNIQUE: Posteroanterior, ulnar deviation, oblique, and lateral views of the left wrist were obtain ed. COMPARISON: 01/30/2023 FINDINGS: Again seen is a nondisplaced fracture of the dorsal aspect of the distal radius. There is d eveloping sclerosis at the fracture site, consistent with early healing. There appears to be a nondis placed fracture of the ulnar styloid. The remaining osseous structures are without acute abnormality. IMPRESSION: 1. Nondisplaced fracture of the distal radius with routine healing. 2. Probable nondisplaced ulnar styloid fracture. Reviewed, dictated and finalized at location L.
== END 2023-02-14 11:53 | disposition home or self-care (01) ==
LOC: ANHIMG 11:55
PROVIDERS: PCP Family Medicine; Visit Provider Orthopaedic Surgery
DX: S52.592D Other fractures of lower end of left radius, subsequent encounter for closed fracture with routine healing (principal); X58.XXXD Exposure to other specified factors, subsequent encounter
CPT/HCPCS: 73110

== ENCOUNTER 2023-07-28 10:27 | Outpatient (CLI) | payer OTHER, SELFPAY ==
[2023-07-28 12:57] LABS: Alanine Aminotransferase 38 U/L (6-50); Albumin Level 4.5 g/dL (3.5-5.1); Alkaline Phosphatase 64 U/L (38-126); Anion Gap 6 mmol/L (8-16); Aspartate Amino Transferase 76 U/L (17-59); Bilirubin,Total 0.9 mg/dL (0.2-1.3); Blood Urea Nitrogen 13 mg/dL (9-20); Calcium 9.9 mg/dL (8.4-10.2); Carbon Dioxide 27 mmol/L (22-30); Chloride 104 mmol/L (98-107); Cholesterol 144 mg/dL (0-200); Estimated Glomerular Filt Rate > 60; Glucose 104 mg/dL (65-110); HDL Direct 59 mg/dL; Potassium 4.1 mmol/L (3.4-5.0); Sodium 137 mmol/L (137-145); Triglycerides 71 mg/dL (<150)
[2023-07-28 13:13] LABS: LDL Cholesterol Direct 61 mg/dL
[2023-08-01 15:53] LABS: Vitamin D 1,25 (OH)2 Total 41 pg/mL (18-72); Vitamin D2 1,25 (OH)2 <8 pg/mL; Vitamin D3 1,25 (OH)2 41 pg/mL
== END 2023-07-28 10:28 | disposition home or self-care (01) ==
LOC: ANHGOSHLAB 10:28
PROVIDERS: PCP Family Medicine; Visit Provider Emergency Medicine
DX: E03.9 Hypothyroidism, unspecified (principal); E55.9 Vitamin D deficiency, unspecified; E78.5 Hyperlipidemia, unspecified
CPT/HCPCS: 36415; 80053; 80061; 82652; 84443

== ENCOUNTER 2023-08-03 18:18 | Emergency (ER) | payer OTHER, SELFPAY ==
--- NOTE | ~2023-08-03 | CT_ITS ---
EXAMINATION: CT brain wo con DATE: 08/03/2023 23:40 INDICATION: Dizziness, nausea and vomiting TECHNIQUE: Computed tomography (CT) of the head was performed without intravenous contrast. Sagittal and coronal reconstructions were performed. The mA was adjusted according to patient size. Iterative reconstruction technique was employed. The dose-length product was 605.33 mGy-cm. COMPARISON: head CT and brain MR dated 09/13/2019 FINDINGS: No acute intracranial hemorrhage, acute infarction or abnormal extra axial fluid collection. Again se en is a small old lacunar infarct in the right thalamus. Ventricles are normal and symmetric. No mass /mass effect. Moderate mucosal thickening the right maxillary and anterior right ethmoid sinuses. The orbits and mastoid air cells are normal. IMPRESSION: 1. Small right thalamic old lacunar infarct. No acute intracranial process. Reviewed, dictated and finalized at location A. ONNEL CLERK
[2023-08-03 18:33] VITALS: BP 131/85; PULSE 63; RESP 20; TEMP 36.2; O2SAT 100
[2023-08-03 19:16] LABS: Basophils Percent Auto 0.3 % (0.2-1.2); Eosinophils Percent Auto 0.1 % (0-4.4); Hematocrit 46.5 % (42.0-52.0); Immature Granulocyte Absolute 0.04 K/mm3 (0.00-0.031); Immature Granulocyte Percent A 0.3 % (0-0.5); Lymphocytes Absolute Auto 0.78 K/mm3 (0.9-3.2); Lymphocytes Percent Auto 6.8 % (18.3-44.2); Mean Corpuscular HGB Conc 34.4 g/dl (32-36); Mean Corpuscular Hemoglobin 31.9 pg (26-34); Mean Corpuscular Volume 92.8 fl (80-100); Mean Platelet Volume 8.9 fl (7.4-10.4); Monocytes Absolute Auto 0.5 K/mm3 (0.1-0.6); Monocytes Percent Auto 3.9 % (2.6-8.5); Neutrophils Absolute Auto 10.2 K/mm3 (1.3-6.7); Neutrophils Percent Auto 88.6 % (45.5-73.1); Platelet Count Result 267 k/mm3 (150-375); Red Blood Count 5.01 M/mm3 (4.6-6.20); Red Cell Distribution Width 12.4 % (11.5-14.5); White Blood Count 11.5 K/mm3 (4.5-10.0)
[2023-08-03 19:29] LABS: Alanine Aminotransferase 33 U/L (6-50); Albumin Level 4.9 g/dL (3.5-5.1); Alkaline Phosphatase 70 U/L (38-126); Anion Gap 9 mmol/L (8-16); Aspartate Amino Transferase 33 U/L (17-59); Bilirubin,Total 0.9 mg/dL (0.2-1.3); Blood Urea Nitrogen 16 mg/dL (9-20); Calcium 9.7 mg/dL (8.4-10.2); Carbon Dioxide 23 mmol/L (22-30); Chloride 105 mmol/L (98-107); Estimated CRCL calculation 114 ml/min; Estimated Glomerular Filt Rate > 60; Glucose 186 mg/dL (65-110); Lipase 40 U/L (23-300); Potassium 4.2 mmol/L (3.4-5.0); Sodium 137 mmol/L (137-145)
[2023-08-03 22:03] VITALS: BP 157/87; PULSE 71; PULSE 78; RESP 14; O2SAT 100
--- NOTE | 2023-08-03 23:02 | ECG_ITS ---
Measurements Intervals [place] Rate: 63 P: 30 NE: 183 QRS: 86 QRSD: 90 T: 40 QT: 387 QTc: 398 Interpretive Statements SINUS RHYTHM BORDERLINE RIGHTWARD AXIS BORDERLINE ECG COMPARED TO ECG 09/13/2019 08:46:59 NO SIGNIFICANT CHANGES Electronically Signed On 08-04-2023 14:02:44 LEAD FRONT DESK AGENT by Adeel Joe M.D.
[2023-08-03 23:55] LABS: Appearance Urine Cloudy (Clear); Bacteria Urine None Seen /hpf; Bilirubin Urine 1+ (Negative); Blood Urine Negative (Negative); Color Urine Dark Yellow (Yellow); Glucose Urine UA Negative (Negative); Ketones Urine 2+ mg/dL (Negative); Leukocyte Esterase Ur Negative LEU/UL (Negative); Mucus Urine Present /lpf; Nitrate Urine Negative (Negative); Protein Urine 1+ mg/dL (Negative); Specific Grav Ur 1.031 (1.001-1.035); Squamous Epithelial Cell Urine None seen /hpf (Few); WBC Urine 0-5 /hpf
[2023-08-03 23:56] LABS: Add Urine Microscopic? YES
[2023-08-03] MEDS: PROCHLORPERAZINE EDISYLATE 10 MG/2 ML VIAL IV PUSH (23:56)
[2023-08-03] MEDS: MECLIZINE HCL 25 MG TABLET 50 MG PO (23:56)
[2023-08-03] MEDS: SODIUM CHLORIDE 0.9% IV 1,000 ML 999 ML IV CONT (23:57)
[2023-08-03] MEDS: diazePAM INJ (*CRX) 10 MG/2 ML SYRINGE 5 MG IV PUSH (23:58)
[2023-08-04] VITALS: BP 121/77; PULSE 82; RESP 17; O2SAT 98
--- NOTE | 2023-08-04 00:30 | ED.GENADULT ---
HPI - General Adult General Chief complaint: Dizziness Stated complaint: N&V dizzyness Time Seen by Provider: 08/03/23 22:13 History of Present Illness HPI narrative: patient 58-year-old gentleman presents emergency department with chief complaint of dizziness nausea vomiting. Patient reports that he had a crown placed in after having cramps started having episodes of rotational symptoms. The patient reports symptoms are worse when he turns his head from side to side worse he has had prior history of stroke that was found have some decreased sensation on the left side. The patient reports that symptoms are not improved by anything Related Data Home Medications Medication Instructions Recorded Confirmed glucosamine sulfate 500 mg tablet 500 mg PO DAILY 08/30/22 02/14/23 (Glucosamine) thiamine HCl (vitamin B1) 100 mg 250 mg PO QAM 08/30/22 02/14/23 tablet (Vitamin B-1) cholecalciferol (vitamin D3) 25 25 mcg PO DAILY 09/15/22 02/14/23 mcg (1,000 unit) capsule Allergies Allergy/AdvReac Type Severity Reaction Status Date / Time gadobenic acid Allergy Swelling Verified 02/14/23 15:17 [From contrast - MRI] guaifenesin [From Robitussin] Allergy Gastrointestinal Verified 02/14/23 15:17 Upset Review of Systems Review of Systems: A 10 system review of systems was completed on the patient and is negative except for what is stated in the HPI. Nursing and ancillary documentation was reviewed. [facility] Past Medical History Medical History Acute eczema CVA, old, hemiparesis Daily consumption of alcohol Hypertension Hypothyroidism Right thalamic infarction In october 30, 2018, with residual numbness on the left side at the back and left shoulder. Echocardiogram showed normal systolic and diastolic function with an EF of 55 to 60%. Carotid ultrasound showed left and 50% stenosis in bilateral internal carotid arteries. Head/neck CTA was unremarkable except for the infarction. Lipids were normal. Stroke Surgical History Surgical History History of testicular surgery Testicular torsion as a teenager. Status post inguinal hernia repair With mesh in 1998. Family History Family History Mother Family history of cardiac disorder Patient's mother is in good health Heart disease Father Acute myocardial infarction Patient's father is Family history of pancreatic disease Cerebrovascular accident Diabetes mellitus Heart disease Thyroid disorder Grandparent Cancer Heart disease Other Diabetes mellitus Social History Social History Social History: The patient lives in [place] with his . He designates his , Cassidy, as his surrogate decision maker and he wishes to be a full code. 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 He smoked a few cigarettes a day for several years in his late 20s. He admits to drinking about 5 beers a day and 2 to 3 shots of whiskey, most nights of the week. 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
[2023-08-04 02:00] VITALS: BP 126/86; PULSE 93; RESP 17; O2SAT 98
== END 2023-08-04 04:35 | disposition home or self-care (01) ==
PROVIDERS: Student in an Organized Health Care Education/Training Program; Emergency Provider Emergency Medicine; PCP Emergency Medicine
DX: R42 Dizziness and giddiness (principal); I69.398 Other sequelae of cerebral infarction; R20.0 Anesthesia of skin; I10 Essential (primary) hypertension; E03.9 Hypothyroidism, unspecified; Z87.891 Personal history of nicotine dependence; Z79.82 Long term (current) use of aspirin; R94.31 Abnormal electrocardiogram [ECG] [EKG]
CPT/HCPCS: 36415; 70450; 80053; 81001; 83690; 85025; 93005; 96361; 96374; 96375; 99284; A9270; J0780; J3360; J7030

== ENCOUNTER 2023-08-24 12:30 | Outpatient (CLI) | payer OTHER, SELFPAY ==
[2023-08-24 22:09] LABS: Hemoglobin A1C 5.5 % (<5.7)
== END 2023-08-24 12:31 | disposition home or self-care (01) ==
LOC: ANHGOSHLAB 12:31
PROVIDERS: PCP Emergency Medicine; Visit Provider Emergency Medicine
DX: R73.9 Hyperglycemia, unspecified (principal)
CPT/HCPCS: 36415; 83036

== ENCOUNTER 2024-01-24 08:19 | Outpatient (CLI) | payer OTHER, SELFPAY ==
[2024-01-24 13:01] LABS: Alanine Aminotransferase 27 U/L (6-50); Albumin Level 4.4 g/dL (3.5-5.1); Alkaline Phosphatase 68 U/L (38-126); Anion Gap 6 mmol/L (4-12); Aspartate Amino Transferase 83 U/L (17-59); Bilirubin,Total 0.8 mg/dL (0.2-1.3); Blood Urea Nitrogen 13 mg/dL (9-20); Calcium 9.6 mg/dL (8.4-10.2); Carbon Dioxide 29 mmol/L (22-30); Chloride 105 mmol/L (98-107); Cholesterol 126 mg/dL (0-200); Estimated Glomerular Filt Rate > 60; Glucose 99 mg/dL (65-110); HDL Direct 50 mg/dL; Potassium 4.1 mmol/L (3.4-5.0); Sodium 140 mmol/L (137-145); Triglycerides 92 mg/dL (<150)
[2024-01-24 13:12] LABS: LDL Cholesterol Direct 62 mg/dL
[2024-01-24 18:11] LABS: Vitamin D 25 Hydroxy 33.5 ng/mL
== END 2024-01-24 08:20 | disposition home or self-care (01) ==
LOC: ANHGOSHLAB 08:21
PROVIDERS: PCP Emergency Medicine; Visit Provider Emergency Medicine
DX: E78.5 Hyperlipidemia, unspecified (principal); E55.9 Vitamin D deficiency, unspecified; E03.9 Hypothyroidism, unspecified; I10 Essential (primary) hypertension
CPT/HCPCS: 36415; 80053; 80061; 82306; 84443

== ENCOUNTER 2024-04-30 10:15 | Outpatient (RCR) | payer OTHER, SELFPAY ==
--- NOTE | 2024-03-21 11:33 | OPREHPOC ---
Outpatient Therapy Plan of Care This is a Multidisciplinary Plan of Care that may contain components documented by all disciplines (PT, OT, and ST.) PT Problem 1 PT Problem #1 Knowledge Deficit PT Goal 1 Goal *indep with HEP * good safety with mobility Target Visit 8 PT Problem 2 PT Problem #2 Impaired Functional Mobility PT Goal 1 Goal 1* improve balance with Edmonds score of 56/56 2* Dizziness Handicap index rating of 4% limitation no reports of unsteady or feel funny with 3* sit to stand 4* from floor to standing 5* lean forward and pick something up off floor 6* further assessment of vestibular system as treatment progresses Target Visit 8
--- NOTE | 2024-03-21 11:33 | PTOPEVAL1 ---
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 Onset in May after dental appointment. He has not had vertigo in the past. Symptoms are less than they initially were. Dizziness Handicap index rating of 18% limitation in activity. Risk factors for vestibular issues: chronic headaches, CVA-ischemic stroke 2019, concussions, deaf L ear, multiple meds--HTN, increase cholesterol, thyroid, daily alcohol use, dehydration--profuse sweating. With the evaluation: testing for BPPV was negative; decreased control with eye tracking, without any symptoms; with the testing and activities, he did not have any symptoms of dizziness, but did report unsteady, off balance. Edmonds balance score of 49/56--difficulty with eyes closed and single leg standing activities; sitting and standing BP changes; Skilled PT services are indicated for therapeutic activities to increase dynamic and static standing balance, education for safety and HEP, with monitoring for changes in vestibular symptoms for BPPV. Plan of Care Interventions Neuro Re-education,Patient Education,
--- NOTE | 2024-04-12 07:53 | PCPTNOTE ---
Pt cancelled due to work conflict.
--- NOTE | 2024-04-25 10:53 | PCPTNOTE ---
No call no show, reason unknown. AKSheridan
--- NOTE | 2024-04-30 11:04 | PTOPDC ---
Assessment and note entered by Dana Romero, PT Discharge Report Assessment Status Discharge ICD-10 Condition Codes (PT) Dizziness & Giddiness R42 Onset May Subjective Information feel like I am about the same as when I started therapy; head feels disoriented, light headed and funny; have more problems with working under the car and then go to get up; am doing OK with driving- took a trip last week; have had a few headaches since coming for therapy--- number varies from every other day to few months-- have had for about 15 years, not new; hot weather sometimes gives him headaches; since the stroke, he sweats more and is hot more; moving head does not bother him, it is moving his whole body; is taking a natural supplement Claratox and thinks it is helping his head be a little clearer; He agrees to discharge PT at this time. He has a follow up with upcoming after he has a few tests done. Reported Pain Level Pain Score 0: Self Report Assessment PT Clinical Summary Lele has received 6 PT sessions. He continues to have lightheaded feelings with whole body positional changes and quick movements: sit to stand with turn and walking and working on his back, under a car and then go to get up to standing from the ground. Self assessment with Dizziness Handicap Index rating from 18 to 8% ; Edmonds balance score from 49 to 54/56; testing for BPPV was negative; education completed for safety with mobility and more awareness of positions. His balance and mobility has improved, but he has history of CVA, headaches, neck pain, meds, concussion may be a factor to his continued report of light headed with positional changes. The goals were partially met. Discharge PT services. He is to continue with the balance exercises. Plan of Care PT Services Indicated No
== END 2024-04-30 11:55 | disposition home or self-care (01) ==
LOC: ANHPT 10:15
PROVIDERS: PCP Emergency Medicine; Visit Provider Emergency Medicine
DX: R42 Dizziness and giddiness (principal)
CPT/HCPCS: 97110; 97112; 97140; 97162; 97530

== ENCOUNTER 2024-06-19 08:53 | Outpatient (CLI) | payer OTHER, SELFPAY ==
[2024-06-19 13:18] LABS: Vitamin D 25 Hydroxy 39.1 ng/mL
[2024-06-19 13:41] LABS: Alanine Aminotransferase 47 U/L (6-50); Albumin Level 4.5 g/dL (3.5-5.1); Alkaline Phosphatase 57 U/L (38-126); Anion Gap 8 mmol/L (4-12); Aspartate Amino Transferase 45 U/L (17-59); Bilirubin,Total 0.8 mg/dL (0.2-1.3); Blood Urea Nitrogen 15 mg/dL (9-20); Calcium 9.7 mg/dL (8.4-10.2); Carbon Dioxide 28 mmol/L (22-30); Chloride 104 mmol/L (98-107); Cholesterol 114 mg/dL (0-200); Estimated Glomerular Filt Rate > 60; Glucose 94 mg/dL (65-110); HDL Direct 46 mg/dL; Potassium 4.3 mmol/L (3.4-5.0); Sodium 140 mmol/L (137-145); Triglycerides 71 mg/dL (<150)
[2024-06-19 13:52] LABS: LDL Cholesterol Direct 45 mg/dL
== END 2024-06-19 08:54 | disposition home or self-care (01) ==
LOC: ANHGOSHLAB 08:54
PROVIDERS: PCP Emergency Medicine; Visit Provider Emergency Medicine
DX: E78.5 Hyperlipidemia, unspecified (principal); E55.9 Vitamin D deficiency, unspecified; Z12.5 Encounter for screening for malignant neoplasm of prostate
CPT/HCPCS: 36415; 80053; 80061; 82306; 84153; G0103

== ENCOUNTER 2024-08-22 11:32 | Outpatient (CLI) | payer OTHER, SELFPAY ==
--- NOTE | ~2024-08-22 | US_ITS ---
EXAMINATION: US carotid duplex BI DATE: 08/22/2024 11:53 INDICATION: Dizziness and giddiness. Carotid atherosclerosis. TECHNIQUE: Grayscale, color Doppler, and pulsed Doppler images of the cervical carotid arteries were obtained. The degree of vessel stenosis is placed in one of the following categories: normal, <50%, 5 0-69%, >=70% but less than near-occlusion, near-occlusion, or total occlusion. Note that percent sten osis relative to normal distal artery lumen diameter is indirectly measured from velocity measurement s as described by Eloy, et al. Radiology 2003; 229:340-346. COMPARISON: Ultrasound dated 10/30/[address] dated 10/31/2018 FINDINGS: RIGHT: The right common carotid artery (CCA) peak systolic velocity (PSV) is 114 cm/s. The right internal ca rotid artery (ICA) PSV is 82 cm/s. The right ICA end-diastolic velocity (EDV) is 34 cm/s. The right I CA/CCA PSV ratio is 0.7. Grayscale and color Doppler images yield an estimate of <50% diameter reduct ion from minimal plaque in the ICA. The external carotid artery (ECA) PSV is 124 cm/s. There is anteg rade flow in the right vertebral artery. LEFT: The left CCA PSV is 107 cm/s. The left ICA PSV is 63 cm/s. The left ICA EDV is 27 cm/s. The left ICA/ CCA PSV ratio is 0.6. Grayscale and color Doppler images yield an estimate of <50% diameter reduction from minimal plaque in the ICA. The ECA PSV is 100 cm/s. There is antegrade flow in the left vertebr al artery. IMPRESSION: 1. <50% stenosis from minimal plaque in the right internal carotid artery. 2. <50% stenosis from minimal in the left internal carotid artery. Reviewed, dictated and finalized at location B. ERCIAL LENDING RELATIONSHIP MANAGER
== END 2024-08-22 11:33 | disposition home or self-care (01) ==
LOC: GOSHIMG 11:33
PROVIDERS: PCP Emergency Medicine; Visit Provider Emergency Medicine
DX: I65.23 Occlusion and stenosis of bilateral carotid arteries (principal)
CPT/HCPCS: 93880

== ENCOUNTER 2024-09-11 08:18 | Outpatient (CLI) | payer OTHER, SELFPAY ==
[2024-09-11 20:00] LABS: Alanine Aminotransferase 46 U/L (6-50); Alkaline Phosphatase 73 U/L (38-126); Anion Gap 8 mmol/L (4-12); Aspartate Amino Transferase 42 U/L (17-59); Bilirubin,Total 0.7 mg/dL (0.2-1.3); Blood Urea Nitrogen 17 mg/dL (9-20); Calcium 9.4 mg/dL (8.4-10.2); Carbon Dioxide 27 mmol/L (22-30); Chloride 105 mmol/L (98-107); Cholesterol 103 mg/dL (0-200); Estimated Glomerular Filt Rate > 60; Glucose 74 mg/dL (65-110); HDL Direct 36 mg/dL; Magnesium 2.5 mg/dL (1.6-2.3); Potassium 4.1 mmol/L (3.4-5.0); Sodium 140 mmol/L (137-145); Triglycerides 70 mg/dL (<150)
[2024-09-11 20:11] LABS: LDL Cholesterol Direct 48 mg/dL
[2024-09-11 20:30] LABS: Thyroid Stimulating Hormone < 0.015 uIU/mL (0.465-4.680)
[2024-09-11 21:00] LABS: Vitamin D 25 Hydroxy 35.2 ng/mL
--- OUTSIDE RECORDS SUMMARY | 2024-09-12 21:43 | XMS_ITS | Clinical Summary ---
Author Organization [facility] [address] Address [address] [place] [address] Care Team Providers Care Integrity Director Name Role Phone Adeel Cesar MD Primary Care Provide r Allergies No known active allergies Medications triamcinolone (KENALOG) 0.1 % ointment APPLY A THIN LAYER TOPICALLY TO THE AFFECTED AREA(S) 2 TIMES DAILY 4 Active amLODIPine (NORVASC) 5 mg tablet Take 1 tablet (5 mg total) by mouth daily 4 Active aspirin 81 mg enteric coated tablet Take 1 tablet (81 mg total) by mouth every morning 4 Active atorvastatin (LIPITOR) 40 mg tablet Take 1 tablet (40 mg total) by mouth daily 4 Active clopidogreL (PLAVIX) 75 mg tablet Take 1 tablet (75 mg total) by mouth every morning 4 Active levothyroxine (SYNTHROID) 150 mcg tablet Take 1 tablet (150 mcg total) by mouth daily 4 Active meclizine (ANTIVERT) 25 mg tablet 4 Active Active Problems No known active problems Social History Tobacco Use Types Packs/Day Years Used Date Smoking Tobacco: Never Tobacco Cessation:Counseling Given: Not Answered Personal Safety Answer Date Recorded Getting School Help Needed Not on file 02/27 Sex and Gender Information Value Date Recorded Sex Assigned at Not on file 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 Gender Identity Not on file Sexual Orientation Not on file Obstetrics History Last Filed Vital Signs Vital Sign Reading Time Taken Comments Blood Pressure 128/90 03/05/2024 2:40 PM CDT Pulse 79 03/05/2024 2:40 PM CDT Temperature - - Respiratory Rate - - Oxygen Saturation - - Inhaled Oxygen Concentration - - Weight 95.3 kg (210 lb) 03/05/2024 2:40 PM CDT Height 175.3 cm (5' 9 ) 03/05/2024 2:40 PM CDT Body Mass Index 31.01 03/05/2024 2:40 PM CDT Plan of Treatment Health Maintenance Due Date Last Done Comments Colon Cancer Screening-Colonoscopy 1967 Depression Screening 1967 Hepatitis C Screening 1967 Prostate Cancer Screening-PSA 1967 DTaP/Tdap/Td Vaccine (1 - Tdap) 1978 Hepatitis B Screening 1985 Regular Well Visit/Exam 18-64 1985 Zoster Vaccine (1 of 2) 2017 Covid-19 Vaccine (3 - season) 2024 01/04/2021, 12/14/2020 Influenza Vaccine (#1) 2024 2, 09/08/2020, 06/21/2017, Additional history exists Pneumococcal vaccine <65 Aged Out No longer eligible based on patient's age to complete this topic Insurance AET [employer] HMO/POS Care Teams Integrity Director Relationship Specialty Start Date End Date Adeel Cesar MD [address] [place] [address] PCP - General Emergency Medicine 02/28/24
--- OUTSIDE RECORDS SUMMARY | 2024-09-12 21:43 | XMS_ITS | Referral Summary ---
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
== END 2024-09-11 08:19 | disposition home or self-care (01) ==
LOC: ANHGOSHLAB 08:20
PROVIDERS: PCP Emergency Medicine; Visit Provider Emergency Medicine
DX: E61.2 Magnesium deficiency (principal); E78.5 Hyperlipidemia, unspecified; R53.83 Other fatigue; E55.9 Vitamin D deficiency, unspecified
CPT/HCPCS: 36415; 80053; 80061; 82306; 83735; 84443

== ENCOUNTER 2024-09-11 10:01 | Outpatient (CLI) | payer OTHER, SELFPAY ==
--- OUTSIDE RECORDS SUMMARY | 2024-09-12 22:58 | XMS_ITS | Referral Summary ---
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
--- OUTSIDE RECORDS SUMMARY | 2024-09-12 22:58 | XMS_ITS | Clinical Summary ---
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
== END 2024-09-11 10:02 | disposition home or self-care (01) ==
LOC: ANHCARD 10:03
PROVIDERS: PCP Emergency Medicine; Visit Provider Emergency Medicine
DX: R00.2 Palpitations (principal)
CPT/HCPCS: 93005

== ENCOUNTER 2024-12-11 13:59 | Outpatient (CLI) | payer OTHER, SELFPAY ==
--- OUTSIDE RECORDS SUMMARY | 2024-12-11 15:54 | XMS_ITS | Encounter Summary ---
Author Organization [facility] Address [address] [place] [address] Care Team Providers Care Upfitter Name Role Phone Adeel Cesar MD Primary Care Provide r Reason for Visit * Reason Onset Date Comments Endo New Patient Appt 12/10/2024 Encounter Details Date Type Department Care Team (Late st Contact Info) Description 12/10/2024 Telephone [facility] [id number] [place] [phone] [place] [address] [address] Endo New Patient Appt Social History Tobacco Use Types Packs/Day Years Used Date Smoking Tobacco: Never Personal Safety Answer Date Recorded Getting School Help Needed Not on file 02/27 Sex and Gender Information Value Date Recorded Sex Assigned at Not on file 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 I told the patient that the appointment was confirmed and he said that he didn't confirm the appointment. I went to reschedule the appointment and it went to the month of June 2025 and the patient said that he would contact his doctor and declined to schedule another appointment. documented in this encounter Plan of Treatment Not on file documented as of this encounter Visit Diagnoses Not on filedocumented in this encounter Care Teams Upfitter Relationship Specialty Start Date End Date Adeel Cesar MD [address] [place] [address] PCP - General Emergency Medicine 02/28/24 documented as of this encounter
--- OUTSIDE RECORDS SUMMARY | 2024-12-11 15:54 | XMS_ITS | Clinical Summary ---
Author Organization [facility] [address] Address [address] [place] [address] Care Team Providers Care Button Decorating Machine Operator Name Role Phone Adeel Cesar MD Primary [...] Active Active Problems No known active problems Encounters Date Type Department Care Team Description 12/10/[address] 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
--- OUTSIDE RECORDS SUMMARY | 2024-12-11 15:54 | XMS_ITS | Clinical Summary ---
Author Organization [email or web address] [facility] Address [address] [place] [address] Care Team Providers Care Yarn Sizer Name Role Phone Unavailable Primary Care Provider Unavailabl e Medications levothyroxine 150 mcg tablet Take 1 Tablet (150 mcg) by mouth daily. 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 09/02/2024 Active Encounters Date Type Department Care Team Description 11/06/2024 External Device Data [facility] Provider, Abstract 10/29/2024 External Device Data [facility] Provider, Abstract 10/29/2024 External Device Data [facility] Provider, Abstract 10/26/2024 External Device Data [facility] Provider, Abstract 10/25/2024 External Device Data [facility] Provider, Abstract 10/15/2024 External Device Data [facility] Provider, Abstract 10/01/2024 External Device Data [facility] Provider, Abstract 09/17/2024 External Device Data [facility] Provider, Abstract 09/17/2024 External Device Data [facility] Provider, Abstract 09/17/2024 External Device Data [facility] Provider, Abstract from Last 3 Months Social History Tobacco Use Types Packs/Day Years Used Date Smoking Tobacco: Never Assessed Sex and Gender Information Value Date Recorded Sex Assigned at Not on file Legal 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
--- OUTSIDE RECORDS SUMMARY | 2024-12-11 15:54 | XMS_ITS | Referral Summary ---
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
[2024-12-11 21:29] LABS: Thyroid Stimulating Hormone < 0.015 uIU/mL (0.465-4.680)
== END 2024-12-11 14:00 | disposition home or self-care (01) ==
LOC: ANHGOSHLAB 14:00
PROVIDERS: PCP Emergency Medicine; Visit Provider Emergency Medicine
DX: R53.83 Other fatigue (principal)
CPT/HCPCS: 36415; 84443

== ENCOUNTER 2025-02-17 11:17 | Outpatient (CLI) | payer OTHER, SELFPAY ==
--- OUTSIDE RECORDS SUMMARY | 2025-02-17 11:48 | XMS_ITS | Clinical Summary ---
Author Organization [employer] [facility] Address [address] [place] [address] Care Team Providers Care Staffing Specialist Name Role Phone Unavailable Primary Care Provider Unavailabl e Medications levothyroxine 150 mcg tablet Take 1 Tablet (150 mcg) by mouth daily. 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
--- OUTSIDE RECORDS SUMMARY | 2025-02-17 11:48 | XMS_ITS | Clinical Summary ---
Author Organization [facility] [address] Address [address] [place] [address] Care Team Providers Care Care Transition Manager Name Role Phone Adeel Cesar MD Primary [...] Type Department Care Team Description 12/10/2024 Telephone [facility] [place] [address] [address] Chris Perez MD Endo New Patient Appt from Last 3 Months Social History Tobacco Use Types Packs/Day Years Used Date Smoking Tobacco: Never Tobacco Cessation:Counseling Given: Not Answered Personal Safety Answer Date Recorded Getting School Help Needed Not on file 02/27 Sex and Gender Information Value Date Recorded Sex Assigned at Not on file 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
--- OUTSIDE RECORDS SUMMARY | 2025-02-17 11:48 | XMS_ITS | Referral Summary ---
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
== END 2025-02-17 11:18 | disposition home or self-care (01) ==
LOC: ANHGOSHLAB 11:18
PROVIDERS: PCP Emergency Medicine; Visit Provider Emergency Medicine
DX: E03.8 Other specified hypothyroidism (principal); E06.3 Autoimmune thyroiditis
CPT/HCPCS: 36415; 84443

== ENCOUNTER 2025-07-30 10:18 | Outpatient (CLI) | payer MEDICARE, OTHER, SELFPAY ==
[2025-07-30 15:08] LABS: Alanine Aminotransferase 53 U/L (6-50); Albumin Level 4.7 g/dL (3.5-5.1); Alkaline Phosphatase 78 U/L (38-126); Anion Gap 10 mmol/L (4-12); Aspartate Amino Transferase 57 U/L (17-59); Bilirubin,Total 0.9 mg/dL (0.2-1.3); Blood Urea Nitrogen 20 mg/dL (9-20); Calcium 9.9 mg/dL (8.4-10.2); Carbon Dioxide 24 mmol/L (22-30); Chloride 106 mmol/L (98-107); Cholesterol 139 mg/dL (0-200); Estimated Glomerular Filt Rate > 60; Glucose 95 mg/dL (65-110); HDL Direct 55 mg/dL; Potassium 4.2 mmol/L (3.4-5.0); Sodium 140 mmol/L (137-145); Total Protein 8.1 g/dL (6.3-8.2); Triglycerides 77 mg/dL (<150)
[2025-07-30 16:20] LABS: Vitamin B12 628.0 pg/mL (239-931)
== END 2025-07-30 10:19 | disposition home or self-care (01) ==
PROVIDERS: PCP Emergency Medicine; Visit Provider Emergency Medicine
DX: E78.5 Hyperlipidemia, unspecified (principal); E55.9 Vitamin D deficiency, unspecified; E53.8 Deficiency of other specified B group vitamins
CPT/HCPCS: 36415; 80053; 80061; 82306; 82607; 82746; 83013